=== PATIENT | female | born 1965 | race Hispanic/Latino ===

== ENCOUNTER 2018-07-27 16:15 | Emergency (ER) | payer BC, SELFPAY | END 2018-07-27 17:08 | disposition home or self-care (01) | LOC: SCSER 16:15 | DX: L03.811 Cellulitis of head [any part, except face] (principal); F41.9 Anxiety disorder, unspecified | CPT/HCPCS: 99283 ==

== ENCOUNTER 2019-04-05 14:54 | Outpatient (CLI) | payer OTHER ==
--- NOTE | 2019-04-05 15:43 | RAD ---
RIGHT FOOT THREE VIEWS: INDICATIONS: Lateral foot swelling for three to four days. COMPARISON: None. FINDINGS: Lisfranc alignment is preserved. No acute fracture or subluxation is evident. Enthesopathic change is seen off the plantar calcaneus. IMPRESSION: No acute osseous abnormality. POS: CET
== END 2019-04-05 14:55 | disposition home or self-care (01) ==
LOC: SCSRAD 14:54
PROVIDERS: ATTEND Family Medicine
DX: M79.671 Pain in right foot (principal)

== ENCOUNTER 2020-07-17 12:51 | Outpatient (CLI) | payer BC ==
--- NOTE | 2020-07-17 13:55 | MMO ---
Bilateral MAMMO Bilat Screen [facility]. CLINICAL HISTORY: Patient is 55 years old and is seen for screening. The patient has the following family history of breast cancer: cousin female, (MATERNAL). The patient has no personal history of cancer. VIEWS: The views performed were: bilateral craniocaudal with tomosynthesis and bilateral mediolateral oblique with tomosynthesis. FILMS COMPARED: The present examination has been compared to a prior imaging study performed at [facility] on 07/05/2016. This study has been interpreted with the assistance of computer-aided detection. MAMMOGRAM FINDINGS: The breasts are heterogeneously dense, which could obscure a lesion on mammography. New nodule upper left breast seen on mlo view only. Probable lymph node. Recommend diagnostic exam. In the right breast, there are no suspicious masses, calcifications or areas of architectural distortion. IMPRESSION: FINDING IN THE LEFT BREAST REQUIRES ADDITIONAL EVALUATION. ADDITIONAL IMAGING. THE RESULTS OF THIS EXAM WERE SENT TO THE PATIENT. ACR BI-RADS Category 0 - Incomplete: Need additional imaging evaluation. [facility] will notify the patient of the need for additional imaging services. MAMMOGRAPHY NOTE: 1. A negative mammogram report should not delay a biopsy if a dominant of clinically suspicious mass is present. 2. Approximately 10% to 15% of breast cancers are not detected by mammography. 3. Adenosis and dense breasts may obscure an underlying neoplasm. Reported by: YAZAN FLANAGAN MD Electonically Signed: [id number]
== END 2020-07-17 12:52 | disposition home or self-care (01) ==
LOC: BICMAMMO 12:51
PROVIDERS: ATTEND Family Medicine
DX: Z12.31 Encounter for screening mammogram for malignant neoplasm of breast (principal); Z80.3 Family history of malignant neoplasm of breast
CPT/HCPCS: 77063; 77067

== ENCOUNTER → 2020-07-20 13:24 | Outpatient (CLI) | payer BC ==
--- NOTE | 2020-07-20 13:53 | MMO ---
Left Breast MAMMO Unilat Diag [facility]. CLINICAL HISTORY: Patient is 55 years old and is seen for additional evaluation requested from prior study. The patient has the following family history of breast cancer: cousin female, (MATERNAL). The patient has no personal history of cancer. VIEWS: The views performed were: left mediolateral oblique spot compression with tomosynthesis; left mediolateral with tomosynthesis; and left exaggerated craniocaudal spot compression with tomosynthesis. FILMS COMPARED: The present examination has been compared to prior imaging studies performed at [facility] on 07/05/2016 and 07/17/2020. This study has been interpreted with the assistance of computer-aided detection. MAMMOGRAM FINDINGS: The breast is heterogeneously dense, which could obscure a lesion on mammography. There is an intramammary lymph node measuring 5 x 8 mm with circumscribed margins seen in the upper-outer region of the left breast. There are no suspicious masses, suspicious calcifications, or new areas of architectural distortion. IMPRESSION: THERE IS NO MAMMOGRAPHIC EVIDENCE OF MALIGNANCY. A ROUTINE FOLLOW-UP MAMMOGRAM IN 1 YEAR IS RECOMMENDED. THE RESULTS OF THIS EXAM WERE SENT TO THE PATIENT. ACR BI-RADS Category 2 - Benign finding MAMMOGRAPHY NOTE: 1. A negative mammogram report should not delay a biopsy if a dominant of clinically suspicious mass is present. 2. Approximately 10% to 15% of breast cancers are not detected by mammography. 3. Adenosis and dense breasts may obscure an underlying neoplasm. Reported by: JEFF HOOPER MD Electonically Signed: [id number]
== END | disposition home or self-care (01) ==
LOC: BICMAMMO 13:24
PROVIDERS: ATTEND Family Medicine
DX: N63.20 Unspecified lump in the left breast, unspecified quadrant (principal)
CPT/HCPCS: G0279

== ENCOUNTER 2020-11-20 03:35 | Emergency (ER) | payer BC | END 2020-11-20 04:12 | disposition home or self-care (01) | LOC: ERS 03:35 | DX: G89.29 Other chronic pain (principal); M54.5 Low back pain | CPT/HCPCS: 99283 ==

== ENCOUNTER 2021-01-18 12:48 | Outpatient (CLI) | payer BC | END 2021-01-18 12:49 | disposition home or self-care (01) | LOC: BICRAD 12:48 | PROVIDERS: ATTEND Family Medicine | DX: M54.9 Dorsalgia, unspecified (principal); M41.9 Scoliosis, unspecified | CPT/HCPCS: 72070 ==

== ENCOUNTER 2021-10-09 09:00 | Outpatient (CLI) | payer BC | END 2021-10-09 09:01 | disposition home or self-care (01) | LOC: BICMAMMO 09:00 | PROVIDERS: ATTEND Family Medicine | DX: Z12.31 Encounter for screening mammogram for malignant neoplasm of breast (principal); Z80.3 Family history of malignant neoplasm of breast | CPT/HCPCS: 77063; 77067 ==